=== PATIENT | male | born 1985 | race Caucasian/White ===

== ENCOUNTER 2019-08-02 03:24 | Emergency (ER) | payer BC, OTHER ==
[2019-08-02] MEDS ORDERED: Acetaminophen/HYDROcodone 325-10 MG Tab PO ONE (04:18)
--- NOTE | 2019-08-02 04:25 | CR ---
Indication: Knee pain after fall Technique: Right knee 3 views Comparison: None Findings: Bones: Alignment is normal. No fractures or bone lesions. Joint spaces: No dislocation. Large knee effusion. Soft tissues: Unremarkable. Impression: No evidence of fracture or dislocation. Large knee effusion. Dictated by Lucho Marte MD @ Aug 02 2019 4:22AM Signed by Dr. Lucho Marte @ Aug 02 2019 4:23AM
--- NOTE | 2019-08-02 04:35 | EDM.PDOC ---
ED HPI GENERAL MEDICAL PROBLEM - General Chief Complaint: Lower Extremity Injury/Pain Stated Complaint: FELL ON ICE- HURT RIGHT KNEE Time Seen by Provider: 08/02/19 03:32 - History of Present Illness INITIAL COMMENTS - FREE TEXT/NARRATIVE: HPI 34-year-old obese male presents for evaluation of right knee pain that occurred after a mechanical slip and fall on ice the preceding day at 4 PM, patient notes pain that woke him from his sleep and is refractory to ibuprofen. Patient reports that he was walking the dog when he slipped, he struck his right knee on the ground, and is been ambulatory (albeit with increasing difficulty) in the intervening time. Notes normal sensation in his right foot. Denies further injuries. ROS with no recent constitutional symptoms. Exam HR 70, RR 18, BP 110/74, T 36.4C, SaO2 98% on room air. Gen: Pleasant, nontoxic-appearing, resting comfortably. HEENT: NC, AT, PEERL, EOMI. Resp: Unlabored respirations with a normal work of breathing. Card: Extremities warm and well perfused. GI: Non-distended. : Deferred MSK: right knee with full functional range of motion, tenderness palpation over the distal medial quadriceps with surrounding hematoma confluent within the effusion, mild tenderness palpation on the lateral aspect of the quadriceps, no further tenderness to palpation over the patella, fibular head, or joint line. No MCL or LCL tenderness to palpation, negative Martir and posterior drawer test. No tenderness to palpation on the quadriceps or patellar tendon, both tendons intact on knee extension. Calf without visible or palpable trauma, muscle compartments soft and non-tender to palpation. Gait - Patient able to take four steps with a moderately antalgic gait. Neuro: alert and oriented 3, no facial asymmetry, vision and hearing WNL. Heme/Lymph: Deferred Skin: Normal color with no visible lesions (other than noted above). Psych: Mood and affect appropriate. Imaging: XR R knee: no evidence of fracture or dislocation. Large knee effusion. MDM Previous chart, nursing note, and vitals reviewed. A: 34-year-old obese male presents for evaluation of right knee pain that occurred after a mechanical slip and fall on ice the preceding day at 4 PM, patient notes pain that woke him from his sleep and is refractory to ibuprofen. DDx & Evaluation: CMS intact, no appreciable ligamentous laxity. Imaging without evidence of fracture. As patient is ambulatory strongly doubt occult tibial plateau fracture. Effusion noted. Patient provided with crutches and immobilizer, limited RX for Cedarburg provided, patient to follow up with orthopedics. Impression: right knee injury. right knee Pain Score (Numeric/FACES): 10 - Related Data Allergies Allergy/AdvReac Type Severity Reaction Status Date / Time No Known Allergies Allergy Verified 08/02/19 04:21 Home Meds: Home Meds Hydrocodone/Acetaminophen [Cedarburg 5-325 Tablet] 1 - 2 each PO Q6H PRN #14 tablet 08/02/19 [Rx] Past Medical History HEENT History: Reports: None Cardiovascular History: Reports: None Respiratory History: Reports: None Gastrointestinal History: Reports: None Genitourinary History: Reports: None Musculoskeletal History: Reports: None Neurological History: Reports: None Psychiatric History: Reports: None Endocrine/Metabolic History: Reports: None Insulin 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 Hematologic History: Reports: None Immunologic History: Reports: None Oncologic (Cancer) History: Reports: None Dermatologic History: Reports: None - Infectious Disease History Infectious Disease History: Reports: None - Past Surgical History Musculoskeletal Surgical History: Reports: None Social & Family History - Family History Family Medical History: Noncontributory - Tobacco Use Smoking Status *Q: Former Smoker Used Tobacco, but Quit: No Tobacco Use Comment: states quit 2 weeks ago - Caffeine Use Caffeine Use: Reports: Energy Drinks - Recreational Drug Use Recreational Drug Use: No Review of Systems - Review of Systems Review Of Systems: See Below ED EXAM, GENERAL - Physical Exam Exam: See Below Course - Vital Signs Last Recorded V/S: Last Vital Signs Temp 36.9 C 08/02/19 03:35 Pulse 82 08/02/19 03:35 Resp 18 08/02/19 03:35 BP 143/84 H 08/02/19 03:35 Pulse Ox 98 08/02/19 03:35 - Orders/Labs/Meds Meds: Medications Discontinued Medications Generic Name Dose Route Start Last Admin Trade Name Freq PRN Reason Stop Dose Admin Hydrocodone Bitart/Acetaminophen 1 tab 08/02/19 04:18 08/02/19 04:22 Cedarburg 325-10 Mg PO 08/02/19 04:19 1 tab ONETIME ONE Administration Departure - Departure Time of Disposition: 04:33 Disposition: Home, Self-Care 01 Clinical Impression: Knee injury - Discharge Information Prescriptions: Hydrocodone/Acetaminophen [Cedarburg 5-325 Tablet] 1 - 2 each PO Q6H PRN #14 tablet PRN Reason: Pain Referrals: Dale Lyons MD [Primary Care Provider] - Additional Instructions: You were in seen in the [facility] Emergency Department for evaluation of an injury to your right knee. You are tentatively suspected to have a strain of your knee leading to swelling (and effusion). Please use the provided crutches and knee for treatment of discomfort. If you are able to return to walking with minimal discomfort you may discontinue using immobilizer and crutches. Please follow-up with an orthopedic physician at [facility]. Please contact them today in the morning to schedule follow-up care. Please read and follow all of the instructions below. [facility] [address] [address] Please follow up with your primary care physician as needed. When calling for follow-up care, please make the office aware that this follow-up is from your recent emergency room visit. If for any reason you are refused follow-up, please contact the [facility] Emergency Department at and asked to speak to the emergency department charge nurse. Your care today was limited to identifying and treating emergent medical problems only. Many people have subtle differences in their test results that require follow up with their outpatient physician(s) to correctly determine if this represents a normal variation or concerning abnormality with respect to your specific health. The care given to you today was limited to identifying and treating emergent medical problems - you need to request a copy of all of your medical records from today's visit and follow up with your outpatient physician(s) to review both today's visit and your overall health. If you have any new symptoms or if you are at all concerned about your health please return immediately to the emergency department. Crutch Use Instructions Setting Up the Crutches: Secure the arm pads and hand tank insulator rubber prior to use. Tighten all hardware ( ie. screws and wing nuts) at least once per week. Clean the crutch tips of ayush and dirt to minimize slipping. Have someone assist you until you master the technique of crutch use. Remove loose rugs and electrical cords from all potential paths to avoid tripping and falling. Replace crutch tips if they should wear out. Be careful on wet indoor surfaces which may be extremely slick. To walk with Crutches: Put your crutches under your arms and press them against your body. Make sure to bear your weight on your hands, not under your arms. Move the crutches ahead of you approximately 12 inches. Push down on the tank insulator rubber as you step slightly past the crutches, leading with the GOOD LEG. Advance the crutches forward approximately 12 inches; then continue. To get up from a seated position: Hold both crutches on affected side. Slide to the edge of the chair or seat. Push down on the arm of the chair on the good side. Stand up, then put the crutches under your arms. Press the arm pads into the body. To Sit Down: Back up to the chair or seat to within 2-3 inches. Put both crutches in your hand on the affected side, reach backwards for the chair or seat with the other hand. Lower yourself slowly into the chair, bending at the hips. To go upstairs: Start close to the bottom step, and push down with your hands. Step up to the first step, remembering to lead with your GOOD LEG. (Good Leg "UP") Next, step up to the same step with the other foot, making sure to keep the crutches with your affected limb. To go downstairs: Start at the edge of the step, keeping your hips beneath you. Slowly bring the crutches with your affected limb down to the next step. BAD LEG first down the stairs. (Bad Leg "Down") Be sure to bend at the hips and knees to prevent leaning too far forward, which could cause you to fall. If handrail is available, place both crutches in hand on unaffected side with rail on affected side. Advance hand on rail slightly and place crutches on lower stair. Then advance both legs simultaneously to next stair. Ibuprofen (Brand Names: Motrin, Advil) Take 400 mg with a glass of water every 6 to 8 hours as needed for pain or fever. Do not take for more than 10 days. This medication may cause a mildly upset stomach, if so take it with a small snack. Stop taking it if you have persistent abdominal pain, heartburn, or any stomach pain. Do not take this medication if you have known ulcers. Do not take with Naproxen Sodium (brand name: Aleve) or other non-steroidal antiiflammatory medications that you may be prescribed (e.g. Diclofenac, Etodolac, Indomethicin) WARNING: This drug may infrequently cause serious (rarely fatal) bleeding from the stomach or intestines. Also, related drugs rarely have caused blood clots to form, resulting in heart attacks and strokes. This medication might also rarely cause similar problems. Talk to your doctor or pharmacist about the benefits and risks of treatment, as well as other possible medication choices. If you notice any of the following rare but very serious side effects, stop taking ibuprofen and seek immediate medical attention: black stools, persistent stomach/abdominal pain, vomit that looks like coffee grounds, chest pain, weakness on one side of the body, sudden vision changes, slurred speech. SIDE EFFECTS: Upset stomach, nausea, vomiting, heartburn, headache, diarrhea, constipation, drowsiness, and dizziness may occur. If any of these effects persist or worsen, notify your doctor or pharmacist promptly. If your doctor has directed you to use this medication, remember that he or she has judged that the benefit to you is greater than the risk of side effects. Many people using this medication do not have serious side effects. Tell your doctor immediately if any of these serious side effects occur: stomach pain, swelling of the hands or feet, sudden or unexplained weight gain, ringing in the ears ( tinnitus). Tell your doctor immediately if any of these unlikely but serious side effects occur: vision changes, rapid or pounding heartbeat, easy bruising or bleeding, difficult/painful swallowing. Tell your doctor immediately if any of these highly unlikely but very serious side effects occur: change in amount of urine, severe headache, very stiff neck, mental/mood changes, persistent sore throat or fever. This drug may rarely cause serious (possibly fatal) liver disease. If you notice any of the following highly unlikely but very serious side effects, stop taking ibuprofen and consult your doctor or pharmacist immediately: yellowing eyes and skin, dark urine, unusual/extreme tiredness. An allergic reaction to this drug is unlikely, but seek immediate medical attention if it occurs. Symptoms of an allergic reaction include: rash, itching/ swelling (especially of the face/tongue/throat), severe dizziness, trouble breathing. This is not a complete list of possible side effects. DRUG INTERACTIONS: Your healthcare professionals (e.g., doctor or pharmacist) may already be aware of any possible drug interactions and may be monitoring you for it. Do not start, stop or change the dosage of any medicine before checking with them first. This drug should not be used with the following medications because very serious interactions may occur: cidofovir, ketorolac. If you are currently using any of these medications listed above, tell your doctor or pharmacist before starting ibuprofen. Before using this medication, tell your doctor or pharmacist of all prescription and nonprescription/herbal products you may use, especially of: anti-platelet drugs (e.g., cilostazol, clopidogrel), oral bisphosphonates (e.g., alendronate), other medications for arthritis (e.g., aspirin, methotrexate), "blood thinners" (e.g., enoxaparin, heparin, warfarin), corticosteroids (e.g., prednisone), cyclosporine, desmopressin, high blood pressure drugs (including LUISITO inhibitors such as captopril, angiotensin II receptor antagonists such as losartan, and beta- blockers such as metoprolol), lithium, pemetrexed, "water pills" (diuretics such as furosemide, hydrochlorothiazide, triamterene). Check all prescription and nonprescription medicine labels carefully for other pain/fever drugs ( NSAIDs such as aspirin, celecoxib, naproxen). These drugs are similar to ibuprofen, so taking one of these drugs while also taking ibuprofen may increase your risk of side effects. Consult your doctor or pharmacist for more details. However, if your doctor has prescribed low doses of aspirin to prevent heart attack or stroke (usually at dosages of 81-325 milligrams a day), you should continue to take the aspirin. Daily use of ibuprofen may decrease aspirin 's ability to prevent heart attack/stroke. Talk to your doctor about using a different medication (e.g., acetaminophen) to treat pain/fever. If you must take ibuprofen, talk to your doctor about possibly taking immediate-release aspirin (not enteric-coated) while also taking the ibuprofen dose apart from your aspirin dose. Do not increase your daily dose of aspirin or change the way you take aspirin/other medications without your doctor's approval. This document does not contain all possible interactions. Therefore, before using this product, tell your doctor or pharmacist of all the products you use. Keep a list of all your medications with you, and share the list with your doctor and pharmacist. Hydrocodone/Acetaminophen (Brand Names: Cedarburg, Vicodin) Take as directed on the prescription for relief of pain. This product contains acetaminophen (Tylenol) do not use it with other Acetaminophen containing medications. This drug may cause mild nausea, if so you may take it with a small snack. This drug will cause constipation, if you experience a decrease in bowel movements purchase "Senna-S" (sennasides and docusate) which is available over the counter at pharmacies and take as directed on the bottle. Call your physician if you have not had bowel movemen in two days. This drug may cause fatigue - do not drive or engage in other hazardous activities when using this medication. Do no drink alcohol when using this medication. Store this drug safely, it is a high risk medication if misused. SIDE EFFECTS: Tell your doctor immediately if any of these unlikely but serious side effects occur: mental/mood changes, severe stomach/abdominal pain, difficulty urinating. Seek immediate medical attention if any of these rare but serious side effects occur: fainting, seizure, slow/shallow breathing, unusual drowsiness/difficulty waking up. Taking more than the recommended dose of acetaminophen may cause serious (possibly fatal) liver disease. Seek immediate medical attention if you have any symptoms of liver damage, including: dark urine, persistent nausea/vomiting, stomach/abdominal pain, yellowing eyes/skin. A very serious allergic reaction to this drug is rare. However, seek immediate medical attention if you notice any symptoms of a serious allergic reaction, including: rash, itching/swelling (especially of the face/tongue/throat), severe dizziness, trouble breathing. This is not a complete list of possible side effects. PRECAUTIONS: Before taking this medication, tell your doctor or pharmacist if you are allergic to it; or to other narcotics (such as morphine, codeine); or if you have any other allergies. This product may contain inactive ingredients, which can cause allergic reactions or other problems. Talk to your pharmacist for more details. Before using this medication, tell your doctor or pharmacist your medical history, especially of: brain disorders (such as head injury, tumor , seizures), breathing problems (such as asthma, sleep apnea, chronic obstructive pulmonary disease-COPD), kidney disease, liver disease, mental/mood disorders (such as confusion, depression), personal or family history of regular use/abuse of drugs/alcohol, stomach/intestinal problems (such as blockage, constipation, diarrhea due to infection, paralytic ileus), difficulty urinating (such as due to enlarged prostate). This drug may make you dizzy or drowsy. Avoid alcoholic beverages. Acetaminophen may cause liver damage. Daily use of alcohol, especially when combined with acetaminophen, may increase your risk for liver damage. Caution is advised if you have diabetes, alcohol dependence, liver disease, phenylketonuria (PKU), or any other condition that requires you to limit/avoid these substances in your diet. Ask your doctor or pharmacist about using this product safely. Older adults may be more sensitive to the effects of this drug, especially dizziness, drowsiness, urinary problems. During , this medication should be used only when clearly needed. Using it for long periods or in high doses near the expected delivery date is not recommended because of the potential for harm to the unborn baby. Discuss the risks and benefits with your doctor. Babies born to mothers who have used this medication for an extended time may have withdrawal symptoms such as irritability, abnormal/persistent crying, vomiting, or diarrhea. If you notice any of these symptoms in your , tell the doctor promptly. This medication passes into breast milk and may rarely have undesirable effects on a nursing . Tell the doctor immediately if your baby develops unusual sleepiness, difficulty feeding, or trouble breathing. Consult your doctor before breast-feeding. Prescriptions: If you are uninsured or have financial difficulties with filling your prescription(s), you may consider using a free pharmacy discount service such as [employer] ([employer]) or [employer] ([employer]). These services allow you to search for a medication on your phone (or computer) and obtain a coupon that usually has a significant discount from the list lomas at a pharmacy. Your physician as well as [facility] does not have a financial relationship with either of these services. You may also wish to speak with your physician to determine if lower cost prescriptions are possible. Obtaining primary care: 1. [facility] provides pediatrics (children), family medicine (children, adults, and some obstetrical care), and internal medicine (adults). Further specialty care is also available. Same day appointments are available. They may be contacted at [phone] and are open Monday through Monday 8 AM to 5 PM. The [facility] clinics are located at [facility], [address] [place], [place] [address]. 2. [facility] offers family medicine, internal medicine, womens health, and further specialty care. [facility] may be contacted at [phone]. [facility] is located at [address] [place], [address]. 3. If you have health insurance, please also contact your insurer for a list of accepting providers under your policy, you may contact these providers for further health care. Occupational health: Work related injuries may consider following up with [facility], . Occupational health services are located at [address], [place] [address] and are open Monday through Monday from 7: 30 am to 5:00 pm. Obstetrical and Gynecological Care: [facility], , Monday through Monday 8 AM to 5 PM. [address] [place] [address]. Eyecare: If you have an eye injury you should follow up with your appeals nurse or with [facility], at [phone] or [phone] , they are located at [address] [place] [address]. Dental Care Enoc Santos DDS. [address] [facility], [place], [place]. Ph. [phone] Travis Santos DDS MS. [address] [facility] [address], [place], [place]. Ph. Branden Franco DDS. 10 [address] [facility] [place], [place]. Ph. [phone] Kp Chao DDS. [address] [facility] [address] [place], [place]. Ph. [phone] Paul Hall DDS PC. [address] [place], [place]. Ph. [phone] Deepika Jones DDS. [address] [facility]. Ph. [phone] [facility] [place]. [address] [facility] [address] [place]. Ph. [phone] [facility]. [address] [place] [address], [place]. Ph. [phone] [facility] [address] [place] [address] [place] [phone]. Ph. [facility]. [address] [place] [address] [address]. [place]. Ph. [facility]. [address] [facility]. Ph. Sepsis Event Note - Evaluation Sepsis Screening Result: No Definite Risk - Focused Exam Vital Signs: Vital Signs Temp Pulse Resp BP Pulse Ox 08/02/19 03:35 36.9 C 82 18 143/84 H 98 Date Exam was Performed: 08/02/19 Time Exam was Performed: 04:33
== END 2019-08-02 04:45 | disposition home or self-care (01) ==
LOC: MW.ED 03:24
DX: S70.11XA Contusion of right thigh, initial encounter (principal); S89.91XA Unspecified injury of right lower leg, initial encounter; E66.9 Obesity, unspecified; Z68.34 Body mass index [BMI] 34.0-34.9, adult; W00.0XXA Fall on same level due to ice and snow, initial encounter
CPT/HCPCS: 73562; 99283; A9270